=== PATIENT | male | born 1940 | race Caucasian/White ===

== ENCOUNTER 2017-08-09 06:09 | Emergency (ER) | payer OTHER ==
[~2017-08-09] VITALS: Ht 165.1 cm; Wt 54.4 kg
[2017-08-09 06:36] VITALS: BP 151/92
--- NOTE | 2017-08-09 07:04 | NUR ---
to bed 3 ambulatory c/o cough and congestion x3 days. pt aaox4 no acute distress noted, resp even and unlabored. pending er md garcia.
--- NOTE | 2017-08-09 07:12 | NUR ---
report given to am shift harris lucio
== END 2017-08-09 07:35 | disposition home or self-care (01) ==
LOC: ER 06:16
DX: J06.9 Acute upper respiratory infection, unspecified (principal); J45.909 Unspecified asthma, uncomplicated
CPT/HCPCS: 99283; A4606; Z7610

== ENCOUNTER 2018-10-07 07:04 | Emergency (ER) | payer MEDICAID, OTHER ==
[~2018-10-07] VITALS: Ht 165.1 cm; Wt 56.7 kg
[2018-10-07 07:13] VITALS: BP 143/83
[2018-10-07] MEDS ORDERED: ALBUTEROL FS 2.5 MG/3 ML VIAL.NEB ONE ×2 (07:27→08:00)
[2018-10-07] MEDS: ALBUTEROL FS 2.5 MG/3 ML VIAL.NEB CONTNEB ONE (07:30)
[2018-10-07] MEDS ORDERED: predniSONE 20 MG TABLET ONE (07:36)
[2018-10-07] MEDS: predniSONE 20 MG TABLET PO ONE (07:41)
[2018-10-07] MEDS: ALBUTEROL FS 2.5 MG/3 ML VIAL.NEB NEB ONE (08:02)
== END 2018-10-07 08:39 | disposition home or self-care (01) ==
LOC: ER 07:06
DX: J45.901 Unspecified asthma with (acute) exacerbation (principal); Z98.49 Cataract extraction status, unspecified eye
CPT/HCPCS: 71045; 94640 ×3; 99285; A4606; J7512

== ENCOUNTER 2018-10-13 16:11 | Emergency (ER) | payer MEDICAID, OTHER ==
[~2018-10-13] VITALS: Ht 165.1 cm; Wt 56.7 kg
[2018-10-13 16:42] VITALS: BP 145/91
--- NOTE | 2018-10-13 17:05 | NUR ---
XRAY IS IN PROGRESS AT THE BEDSIDE.
== END 2018-10-13 17:49 | disposition home or self-care (01) ==
LOC: ER 16:16
DX: M25.511 Pain in right shoulder (principal); J45.909 Unspecified asthma, uncomplicated; Z98.890 Other specified postprocedural states; W01.0XXA Fall on same level from slipping, tripping and stumbling without subsequent striking against object, initial encounter; Y93.89 Activity, other specified; Y92.89 Other specified places as the place of occurrence of the external cause; Y99.8 Other external cause status
CPT/HCPCS: 73030; 73060; 99283; A4606

== ENCOUNTER 2019-01-06 16:07 | Emergency (ER) | payer OTHER ==
[~2019-01-06] VITALS: Ht 165.1 cm; Wt 63.5 kg
[2019-01-06 16:07] VITALS: BP 139/82
--- NOTE | 2019-01-06 16:55 | NUR ---
last urination was last night, burning sensation during urination. PT AAOX4, VSS. DENIES CP, SOB, DIZZINESS, ABD PAIN, N/V AT THIS TIME. PT SEEN & EVAL'D BY DR. NOLASCO. 16 FR COLBERT CATHETER FLOWED WELL & HAD INSTANT RELIEF, NO BLOOD CLOT NOTED. WILL CONT TO MONITOR.
[2019-01-06 16:58] LABS: BASOPHILS # (AUTO) 0.1 /CMM (0.0-0.2); BASOPHILS % (AUTO) 0.4 % (0.0-2.0); EOSINOPHILS % (AUTO) 0.8 % (0.0-6.0); HEMATOCRIT 36 % (39-51); HEMOGLOBIN 12.3 g/dL (13.5-17.5); LYMPHOCYTES # (AUTO) 1.5 /CMM (0.8-4.8); LYMPHOCYTES % (AUTO) 10.8 % (20.0-44.0); MEAN CORPUSCULAR HGB CONC 34 g/dl (31.0-36.0); MEAN CORPUSCULAR VOLUME 79 fL (80-96); MONOCYTES # (AUTO) 1.1 /CMM (0.1-1.30); MONOCYTES % (AUTO) 8.1 % (2.0-12.0); NEUTROPHILS # (AUTO) 10.9 /CMM (1.8-8.9); NEUTROPHILS % (AUTO) 79.9 % (43.0-81.0); PLATELET COUNT (AUTO) 160 /CMM (150-450); RED BLOOD CELL COUNT(AUTO) 4.55 MIL/uL (4.5-6.0); WHITE BLOOD COUNT (AUTO) 13.7 K/uL (4.3-11.0)
[2019-01-06 17:16] LABS: CALCIUM, SERUM 8.4 mg/dL (8.5-10.1); CARBON DIOXIDE 24 mmol/L (21-32); CHLORIDE 89 mmol/L (98-107); GLUCOSE 105 mg/dL (74-106); SODIUM SERUM 123 mmol/L (136-145); UREA NITROGEN, BLOOD 15 mg/dL (7-18)
[2019-01-06 17:22] LABS: ALANINE AMINOTRANSFERASE 20 U/L (12-78); ALBUMIN 3.2 g/dL (3.4-5.0); ALKALINE PHOSPHATASE 92 U/L (46-116); ASPARTATE AMINOTRANSFERASE 18 U/L (15-37); BILIRUBIN,DIRECT 0.1 mg/dL (0.0-0.2); BILIRUBIN,TOTAL 0.4 mg/dL (0.2-1.0); TOTAL PROTEIN, SERUM 7.3 g/dL (6.4-8.2)
[2019-01-06 17:23] LABS: APPEARANCE,URINE Clear (CLEAR); BILIRUBIN,URINE Negative (NEGATIVE); BLOOD, URINE Small Ery/uL (NEGATIVE); COLOR,URINE Yellow (YELLOW); KETONES,URINE Negative (NEGATIVE); LEUKOCYTE ESTERASE ,URINE Negative (NEGATIVE); NITRITE, URINE Negative (NEGATIVE); PROTEIN,URINE Negative (NEGATIVE); UGLUCOSE Negative (NEGATIVE); UROBILINOGEN,URINE 0.2 EU/dL (0.2)
[2019-01-06 17:47] LABS: BACTERIA,URINE Few /HPF (None Seen); MUCUS,URINE Few /LPF (None Seen); SQUAMOUS EPITHELIAL CELL,UR Few /HPF (None Seen); URINE AMORPHOUS URATE Few /HPF (None Seen); WBC,URINE 2-3/HPF /HPF (0-3)
[2019-01-06] MEDS ORDERED: IV NS 0.9% 500 ML BAG IV ONE (18:30)
--- NOTE | 2019-01-06 18:41 | NUR ---
PT SIGNED AMA FORM. DR. NOLASCO EXPLAINED TO PT ABOUT THE RISKS & CONSEQUENCES ON LEAVING AMA. PT ACKNOWLEDGED WITH VERBAL UNDERSTANDING. IV removed. Catheter intact and site benign. Pressure and 4x4 applied to site. No bleeding noted.
[2019-01-08] MEDS ORDERED: ALBU18HF2 IH (08:19)
[2019-01-08] MEDS ORDERED: FLUT1BLS IH (08:19)
== END 2019-01-06 18:44 | disposition left against medical advice (07) ==
LOC: ER 16:13
DX: E87.1 Hypo-osmolality and hyponatremia (principal); J45.909 Unspecified asthma, uncomplicated; Z98.890 Other specified postprocedural states
CPT/HCPCS: 36415; 71045-TC; 80048-TC; 80076-TC; 81000-TC; 83605-TC; 84484-TC; 85025-TC; 85730-TC; 87040-TC; 87086-TC; 87186-TC

== ENCOUNTER 2019-03-31 19:10 | Emergency (ER) | payer OTHER ==
[~2019-03-31] VITALS: Ht 165.1 cm; Wt 54.9 kg
[~2019-03-31 19:10] MED LIST: ALBU18HF2 IH; FLUT1BLS IH
--- NOTE | 2019-03-31 19:25 | NUR ---
TO BED 2 C/O WORSENING L KNEE PAIN AND SWELLING X 1 MONTH, NON TRAUMATIC. PT AAOX4 NO ACUTE DISTRESS NOTED, RESP EVEN AND UNLABORED. PENDING ER MD JANSEN.
--- NOTE | 2019-03-31 20:31 | NUR ---
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
[2019-03-31 21:15] VITALS: BP 139/86
--- NOTE | 2019-03-31 21:15 | NUR ---
Patient discharged to home in stable condition. Written and verbal after care instructions given. Patient verbalizes understanding of instruction. ambulatory with a steady gait
== END 2019-03-31 21:16 | disposition home or self-care (01) ==
LOC: ER 19:13
DX: M17.12 Unilateral primary osteoarthritis, left knee (principal); J45.909 Unspecified asthma, uncomplicated; Z98.890 Other specified postprocedural states; Z79.899 Other long term (current) drug therapy
CPT/HCPCS: 73564-TC; 93971-TC

== ENCOUNTER 2019-04-22 10:21 | Emergency (ER) | payer OTHER ==
[~2019-04-22] VITALS: Ht 165.1 cm; Wt 51.7 kg
[2019-04-22 10:28] VITALS: BP 128/50
--- NOTE | 2019-04-22 12:37 | NUR ---
Patient discharged to home in stable condition. Written and verbal after care instructions given. Patient verbalizes understanding of instruction.
== END 2019-04-22 12:37 | disposition home or self-care (01) ==
LOC: ER 10:27
DX: M17.12 Unilateral primary osteoarthritis, left knee (principal); J45.909 Unspecified asthma, uncomplicated; R40.4 Transient alteration of awareness; Z98.890 Other specified postprocedural states
CPT/HCPCS: 70450-TC